=== PATIENT | female | born 1945 | race Caucasian/White ===

== ENCOUNTER → 2017-04-21 | Outpatient (CLI) | payer OTHER ==
[~2017-04-21] MED LIST: ASPI81TA28 PO; ATOR-22 PO; ATOR-24 PO; EZET10TA63 PO; LOSA1TAB PO; METO50TA7 PO; MULT-506 PO; WARF2TAB PO; [UNRECOGNIZED DRUG - OTHER] PO
[2017-04-21 16:04] LABS: ALT/SGPT 25 U/L (12-78); AST/SGOT 13 U/L (15-37); BLOOD UREA NITROGEN 15 mg/dl (7-18); BUN/CREATININE RATIO 17.7 (10-20); CALCIUM 8.9 mg/dl (8.5-10.1); CARBON DIOXIDE 31 mmol/L (21-32); CHLORIDE 110 mmol/L (98-107); CREATININE 0.83 mg/dl (0.60-1.20); GLUCOSE 100 mg/dl (70-99); POTASSIUM 3.9 mmol/L (3.5-5.1); SODIUM 144 mmol/L (136-145)
[2017-04-22 07:34] LABS: ESTIMATED AVERAGE GLUCOSE 134 mg/dl; HA1C FLAG Normal (Normal)
== END | disposition home or self-care (01) ==
LOC: C.LAB1850 14:07
PROVIDERS: ATTEND Internal Medicine
DX: R73.03 Prediabetes (principal); E78.5 Hyperlipidemia, unspecified

== ENCOUNTER → 2017-04-28 | Outpatient (CLI) | payer OTHER ==
--- NOTE | 2017-04-28 11:31 | DIAGNOSTIC IMAGING REPORT ---
RIGHT KNEE 4 VIEWS CLINICAL HISTORY: Right knee pain and swelling. FINDINGS: AP, crosstable lateral, tunnel, and sunrise views of the right knee are obtained. No prior studies are available for comparison at the time of dictation. The skeletal structures are osteopenic. No fracture is seen. There is moderate narrowing at the patellofemoral articulation. Mild narrowing is seen in the medial and lateral compartments. There are large marginal osteophytes as well as patellar enthesophytes. Calcified joint bodies are suggested in the posterolateral joint space. These measure up to 1.2 cm. A small calcified joint body is also suggested in the medial compartment on the tunnel image. No osteochondral defect is seen on the tunnel view. There is no significant joint effusion. Mild soft tissue swelling is present around the knee. IMPRESSION: 1. Soft tissue swelling with no acute bony abnormality identified in the right knee. 2. Osteopenia and arthritic change as above. 3. Suspect calcified joint bodies as above. Electronically signed by: Paul Hayes M.D. 04/28/2017 11:30 AM Dictated Date/Time: 04/28/2017 11:28 AM
--- NOTE | 2017-04-28 11:38 | DIAGNOSTIC IMAGING REPORT ---
PELVIS BILATERAL HIP 2 CLINICAL HISTORY: HIP OSTEOARTHRITIS pain COMPARISON: None. DISCUSSION: Moderate degenerative change right hip. Pre-existing total left hip arthroplasty. No evidence for acetabular protrusion. Several degenerative subchondral cysts of the right hip and associated acetabulum. There is no evidence for soft tissue swelling. IMPRESSION: Moderate degenerative change right hip. Pre-existing total left hip prosthetic in good position. The above report was generated using voice recognition software. It may contain grammatical, syntax or spelling errors. Electronically signed by: Lorenzo Escalante M.D. 04/28/2017 11:37 AM Dictated Date/Time: 04/28/2017 11:36 AM
== END | disposition home or self-care (01) ==
LOC: C.RDSM 13:50
PROVIDERS: ATTEND Physician Assistant
DX: M16.12 Unilateral primary osteoarthritis, left hip (principal); M25.561 Pain in right knee

== ENCOUNTER → 2017-05-28 | Outpatient (CLI) | payer OTHER ==
[2017-05-28 12:13] LABS: THYROID STIMULATING HORMONE 1.54 uIu/ml (0.300-4.500)
== END | disposition home or self-care (01) ==
LOC: C.LAB1850 10:28
PROVIDERS: ATTEND Internal Medicine
DX: E78.5 Hyperlipidemia, unspecified (principal); E03.9 Hypothyroidism, unspecified

== ENCOUNTER → 2017-06-01 | Outpatient (CLI) | payer OTHER | END | disposition home or self-care (01) | LOC: C.PAPS 14:17 | PROVIDERS: ATTEND Physician Assistant | DX: Z12.4 Encounter for screening for malignant neoplasm of cervix (principal); R87.611 Atypical squamous cells cannot exclude high grade squamous intraepithelial lesion on cytologic smear of cervix (ASC-H) ==

== ENCOUNTER → 2017-06-04 | Outpatient (CLI) | payer OTHER ==
--- NOTE | 2017-06-08 12:38 | MAMMOGRAPHY REPORT ---
BILATERAL DIGITAL SCREENING MAMMOGRAM WITH CAD: 06/04/2017 CLINICAL HISTORY: Routine screening. Patient has no complaints. TECHNIQUE: Current study was also evaluated with a Computer Aided Detection (CAD) system. Bilateral CC and MLO views were obtained. COMPARISON: No prior exams were available for comparison. BREAST COMPOSITION: There are scattered areas of fibroglandular density in both breasts. FINDINGS: There is an asymmetry within the right 12:00 breast, which may represent normal fibroglandu lar tissue although spot compression tomosynthesis views and possible breast ultrasound are recommend ed for further evaluation. The remainder of both breasts demonstrate no suspicious masses, calcificat ions, or areas of architectural distortion. IMPRESSION: ACR BI-RADS CATEGORY 0: INCOMPLETE EVALUATION: NEED ADDITIONAL IMAGING EVALUATION Right breast asymmetry, for which additional imaging evaluation is recommended, given no priors to do cument stability. The patient will be called to schedule an appointment. Approximately 10% of breast cancers are not detected with mammography. A negative mammographic report should not delay biopsy if a clinically suggestive mass is present. Stefanie Paul M.D. ah/:06/04/2017 16:35:03 Nut Process Helper: Osiris LEES)(Sukumar), [facility] letter sent: Addl Imaging 0 BI-RADS Code: ACR BI-RADS Category 0: Incomplete Evaluation: Need Additional Imaging Evaluation
== END | disposition home or self-care (01) ==
LOC: C.MAMM 12:21
PROVIDERS: ATTEND Internal Medicine
DX: Z12.31 Encounter for screening mammogram for malignant neoplasm of breast (principal); N64.89 Other specified disorders of breast

== ENCOUNTER → 2017-12-09 | Outpatient (CLI) | payer OTHER ==
[~2017-12-09] MED LIST changes: -METO50TA7 PO; +METO50TA8 PO
--- NOTE | 2017-12-09 15:04 | MAMMOGRAPHY REPORT ---
UNILATERAL RIGHT DIGITAL DIAGNOSTIC MAMMOGRAM TOMOSYNTHESIS AND TARGETED RIGHT ULTRASOUND: 12/09/2017 CLINICAL HISTORY: Callback from screening mammogram for right breast asymmetry. TECHNIQUE: Breast tomosynthesis in addition to standard 2D mammography was performed. Right CC and MLO 2D and tomosynthesis images were obtained. COMPARISON: Comparison is made to exam dated: 06/04/2017 mammogram - [facility]. BREAST COMPOSITION: There are scattered areas of fibroglandular density in the right breast. FINDINGS: The previously described asymmetry seen within the right 12:00 breast does not appear signi ficantly changed compared to the June 2017 exam. Additionally, the asymmetry has the appearance of fibroglandular tissue on the tomosynthesis images. The remainder of the right breast is stable c ompared to the prior exam, without suspicious masses, calcifications, or areas of architectural disto rtion noted. A few scattered benign-appearing calcifications are stable. Targeted ultrasound was performed of the area of the mammographic asymmetry within the right 12:00 br east. Sonographically normal tissue is seen in this region, without evidence of a mass or other susp icious sonographic abnormality. IMPRESSION: ACR BI-RADS CATEGORY 2: BENIGN, TARGETED ULTRASOUND ACR BI-RADS CATEGORY 2: BENIGN The right breast asymmetry is stable compared to the June 2017 exam, without corresponding suspi cious sonographic abnormality evident. The asymmetry is benign and compatible with normal fibrogland ular tissue. There is no mammographic or targeted sonographic evidence of malignancy. Return to [facility] mammogram screening schedule is recommended, due June 2018. The patient has been verbally notified of the results. Approximately 10% of breast cancers are not detected with mammography. A negative mammographic report should not delay biopsy if a clinically suggestive mass is present. Stefanie Paul M.D. ah/:12/09/2017 10:53:20 Drag Down: Cici BOATENG(Kobi)(Sukumar), [facility] letter sent: Normal 1/2 BI-RADS Code: ACR BI-RADS Category 2: Benign Ultrasound BI-RADS: ACR BI-RADS Category 2: Benign
== END | disposition home or self-care (01) ==
LOC: C.MAMM 10:07
PROVIDERS: ATTEND Internal Medicine
DX: N64.89 Other specified disorders of breast (principal)

== ENCOUNTER → 2017-12-09 | Outpatient (CLI) | payer OTHER ==
[2017-12-09 13:15] LABS: ALT/SGPT 28 U/L (12-78); AST/SGOT 17 U/L (15-37); BLOOD UREA NITROGEN 17 mg/dl (7-18); CALCIUM 8.9 mg/dl (8.5-10.1); CARBON DIOXIDE 24 mmol/L (21-32); CREATININE 0.82 mg/dl (0.60-1.20); GLUCOSE 92 mg/dl (70-99); POTASSIUM 3.9 mmol/L (3.5-5.1); SODIUM 142 mmol/L (136-145)
[2017-12-09 13:25] LABS: CHOLESTEROL 120 mg/dl (0-200); LDL CHOLESTEROL CALCULATED 49 mg/dl
[2017-12-09 13:46] LABS: HEMOGLOBIN A1C 6.2 % (4.5-5.6)
== END | disposition home or self-care (01) ==
LOC: C.LAB1850 09:51
PROVIDERS: ATTEND Internal Medicine
DX: E03.9 Hypothyroidism, unspecified (principal); R73.09 Other abnormal glucose; E78.5 Hyperlipidemia, unspecified

== ENCOUNTER → 2017-12-09 | Outpatient (CLI) | payer OTHER ==
--- NOTE | 2017-12-09 15:41 | DIAGNOSTIC IMAGING REPORT ---
AP PELVIS AND LEFT HIP 2 VIEWS CLINICAL HISTORY: LEFT HIP PAIN COMPARISON: 04/28/2017 DISCUSSION: There are postsurgical changes of a total left hip arthroplasty. No acute fractures or dislocations are visualized. Again evident is a subchondral cyst within the right acetabulum. IMPRESSION: 1. Total left hip arthroplasty. No acute fractures or dislocations 2. Degenerative changes within the right hip with a prominent subchondral acetabular cyst Electronically signed by: Jose Rich M.D. 12/09/2017 3:40 PM Dictated Date/Time: 12/09/2017 3:39 PM
== END | disposition home or self-care (01) ==
LOC: C.RDSM 15:04
PROVIDERS: ATTEND Physician Assistant
DX: M79.652 Pain in left thigh (principal)

== ENCOUNTER → 2018-01-17 | Outpatient (CLI) | payer OTHER ==
--- NOTE | 2018-01-17 14:33 | DIAGNOSTIC IMAGING REPORT ---
R ANKLE MIN 3 VIEWS CLINICAL HISTORY: RIGHT ANKLE PAIN AND SWELLING COMPARISON: None. DISCUSSION: Surgical clips are visualized within the soft tissues of the lower leg. There are no acute fractures. There are no subluxations. There is a corticated bony density projected over the dorsal aspect of the talus anteriorly. This is felt to be old. There are Achilles insertional calcifications. IMPRESSION: 1. No fractures or subluxations identified. 2. No destructive lesions identified. No evidence of erosive disease. Electronically signed by: Jose Rich M.D. 01/17/2018 2:32 PM Dictated Date/Time: 01/17/2018 2:31 PM
== END | disposition home or self-care (01) ==
LOC: C.RDSM 17:25
PROVIDERS: ATTEND Family Medicine
DX: M25.571 Pain in right ankle and joints of right foot (principal)